=== PATIENT | female | born 1975 | race Caucasian/White ===

== ENCOUNTER 2023-04-20 09:41 | Outpatient (AMB) | payer OTHER, SELFPAY ==
--- NOTE | 2023-04-20 10:01 | AM.OFFWIN_ITS ---
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 Pt has congestion, ear pain and throwing up green phlegm. 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 Reporting symptoms of sinus congestion, sore throat and difficulty swallowing. Low-grade fever. No family member is sick. No recent travel. Patient reports symptoms of malaise and f atigue. PFSH Social History Patient Tobacco Use Status: Never used Tobacco Physical Exam Vital Signs: Last Vital Signs Temp 98 F 04/20/23 10:05 Pulse 93 04/20/23 10:05 BP 110/68 04/20/23 10:05 Pulse Ox 97 04/20/23 10:05 Oxygen Delivery Method Room Air 04/20/23 10:05 Const General: cooperative and healthy appearing Nutritional Appearance: well nourished Orientation/consciousness: patient oriented x3 Limitations: no limitations HEENT Head: Yes normal to inspection Eyes General: appearance normal, both eyes and all related structures Neck Neck: Yes normal visual inspection Chest Chest palpation & inspection: normal palpation of entire chest wall Resp Effort & Inspection: normal respiratory effort Neuro General: patient oriented x3 Assessment & Plan Assessment & Plan (1) Upper respiratory tract infection: Code(s): J06.9 - Acute upper respiratory infection, unspecified Plan: Antibiotics ordered. Increase fluid intake. Tylenol for aches and pains. If symptoms worsen, follow-up here for a recheck. Coding Level of Care Code Est Pt Level 3 (10605) Diagnoses Upper respiratory tract infection J06.9
[2023-04-20 10:05] VITALS: BP 110/68; PULSE 93; TEMP 36.6; O2SAT 97
== END 2023-04-20 10:31 | disposition home or self-care (01) ==
PROVIDERS: PCP Internal Medicine; Visit Provider Internal Medicine
DX: J06.9 Acute upper respiratory infection, unspecified (principal)
CPT/HCPCS: 99213

== ENCOUNTER 2023-11-30 09:40 | Outpatient (AMB) | payer OTHER, SELFPAY ==
[2023-11-30 09:42] VITALS: BP 130/80; PULSE 115; TEMP 36.3; O2SAT 97; BMI 40.4
--- NOTE | 2023-11-30 09:42 | MHC.OFFWIV ---
Intake Vital Signs 11/30/23 09:42 Height 5 ft 3 in Weight 228 lb BMI 40.4 BP 130/80 Blood Pressure Location Lt brachial Position Sitting Pulse 115 H Pulse Source Pulse Oximeter Temp 97.4 F Temp Source Temporal Artery Scan Pulse Oximetry (%) 97 Oxygen Delivery Method Room Air Intake Visit Reasons: EP ?Sinus Infection [phone] Intake Note: pt is here today for sinus infection started 1 week ago Patient Tobacco Use Status: Never used Tobacco Allergies No Known Allergies Allergy (Verified 11/30/23 09:42) Medication List - Last Reconciled 11/30/23 by MARY Garland amoxicillin 875 mg PO BID 7 days empagliflozin (Jardiance) 25 mg PO DAILY empagliflozin (Jardiance) 10 mg PO DAILY lisinopril 10 mg PO DAILY medroxyprogesterone mg IM metformin ER 1,000 mg PO BID nystatin (Nystop) topical pantoprazole 20 mg PO BID Do you need a note to return to daycare/school/sports/work: No HPI HPI Comments History of Present Illness Details Patient is a 48-year-old female in today complaining of sinus pain and pressure for the last 7 days. She has had an upper respiratory infection for 10 days but her sinus complaints started a week ago. She does have a past medical history of sinusitis. Denies fever cough chest pain PFSH Social History Patient Tobacco Use Status: Never used Tobacco Review of Systems ENT Reports nasal congestion, Reports nasal discharge, Reports sinus pain and Reports sinus pressure Physical Exam Vital Signs: Last Vital Signs Temp 97.4 F 11/30/23 09:42 Pulse 115 H 11/30/23 09:42 BP 130/80 11/30/23 09:42 Pulse Ox 97 11/30/23 09:42 Oxygen Delivery Method Room Air 11/30/23 09:42 BMI result Body Mass Index 40.4 Const General: no acute distress HEENT Head: Yes normal to inspection, Yes normocephalic and Yes atraumatic Ears: hearing grossly normal bilaterally, external ears normal, TM's normal bilaterally, TM normal on the right, TM normal on the left and EAC's normal General nose exam: Normal external nose present Face and sinus: Yes sinus tenderness (Frontal sinus tenderness) Mouth: Normal oral and palatal mucosa present Teeth and gingiva: dentition normal Throat: Yes posterior oropharynx normal Eyes General: appearance normal, both eyes and all related structures Chest Chest palpation & inspection: normal inspection of the chest Resp Effort & Inspection: normal respiratory effort Auscultation: clear to auscultation bilaterally Cardio Rate: regular rate Rhythm: regular rhythm Assessment & Plan Assessment & Plan (1) Sinusitis: Code(s): J32.9 - Chronic sinusitis, unspecified Plan: Amoxicillin for 7 days and then follow up with PCP as needed Plan See plan Medications: New amoxicillin 875 mg PO BID 7 days 14 tabs 0RF Coding Level of Care Code Est Pt Level 3 (86351) Diagnoses Sinusitis J32.9 Time Spent (min) 20
== END 2023-11-30 11:39 | disposition home or self-care (01) ==
PROVIDERS: PCP Internal Medicine; Visit Provider Physician Assistant Medical
DX: J32.9 Chronic sinusitis, unspecified (principal)
CPT/HCPCS: 99213